=== PATIENT | male | born 1975 | race Caucasian/White ===

== ENCOUNTER 2021-12-04 08:27 | Emergency (ER) | payer MEDICAID, SELFPAY ==
[2021-12-04 08:39] VITALS: BP 126/106; PULSE 75; RESP 24; TEMP 36.5; O2SAT 100; BMI 27.0
--- NOTE | 2021-12-04 08:40 | ED_ITS ---
Documented by User: KARLY Urbina 12/04/21 13:06 HPI - Abdominal Pain General: Chief Complaint: Abdominal Pain Stated Complaint: ABD pain Time Seen by Provider: 12/04/21 08:28 Source: patient Mode of arrival: wheelchair Limitations: no limitations History of Present Illness: Patient is a nice 46-year-old male who presents to ED today with a complaint of abdominal pain, nausea, and vomiting beginning today. Patient states he has vomited approximately 6-7 times since onset. Emesis is nonbloody. Patient reports a chronic abdominal hernia that keeps popping out . Patient has an extensive previous abdominal history including history of Mueller's esophagus, 2 Musa fundoplications, esophagectomy with gastric pull-through, two hiatal hernia repairs, and another procedure that required resection of his small bowel as it had herniated and wrapped around his heart. He states he is from [place] and most of these surgeries were performed there. Patient states his abdominal hernia has always been reducible but is popping out more frequently now. He wears an abdominal binder. He is passing gas/stool. MD elicited complaint: abdominal pain Onset (ago): hour(s) Pain Consistency: constant Location: Diffuse Severity: severe Quality: cramping and sharp Relieving factors: nothing Associated Symptoms: Reports nausea and vomiting; Denies change in bowel habits, change in stool character, chills, dysuria, fever(s), hematochezia, hematemesis and melena Review of Systems Const: Denies: fever(s), chills, body aches, fatigue or malaise Card: Denies: chest pain Resp: Denies: dyspnea GI: Reports: abdominal pain, nausea and vomiting; Denies: hematemesis, change in bowel habits, pain on defecation, change in stool character, hematochezia or melena : Denies: flank pain or dysuria Musc: Denies: neck pain, back pain, extremity pain or joint pain Skin/Breast: Denies: rash Neuro: Denies: headache(s) or dizziness PFSH ED PFSH: Medical History Hiatal hernia Surgical History History of esophagectomy History of esophagectomy Social History Smoking and tobacco status: former smoker Physical Exam Const: COMMON NORMALS: average body habitus, patient oriented x3, no limitations, healthy appearing, alert and well nourished GENERAL APPEARANCE: cooperative and in distress (appears uncomfortable ) HENMT: COMMON NORMALS: normocephalic and atraumatic HEAD & SCALP: normal to inspection, normocephalic and atraumatic Chest: COMMONS NORMALS: normal inspection of the chest and normal palpation of entire chest wall Resp: COMMON NORMALS: normal respiratory effort and clear to auscultation bilaterally AUSCULTATION: clear to auscultation bilaterally Cardio: COMMON NORMALS: regular rate and regular rhythm RATE: regular rate RHYTHM: regular rhythm GI: COMMON NORMALS: Soft to palpation and No hepatosplenomegaly present INSPECTION: Yes other (obvious hernia present) AUSCULTATION: Yes normoactive bowel sounds PALPATION: Yes Soft to palpation, Yes No hepatosplenomegaly present and Yes Palpable mass present (L mid/lower abdomen) GI image (male): 1. large ventral/spigelian hernia present; this was easily reducible : COMMON NORMALS: Yes no CVA tenderness BLADDER/KIDNEY EXAM: Yes no CVA tenderness Back/Pelvis: COMMON NORMALS: no CVA tenderness Extremity: COMMON NORMALS: normal to inspection GENERAL: Yes normal exam except as noted Neuro: KEI COMA SCALE: document GCS findings Kei coma scale eye opening: Spontaneous Kei coma scale verbal response: Orientated [place] coma scale motor response: Obey commands [place] coma scale total score: 15 COMMON NORMALS: patient oriented x3, moves all extremities, no focal motor deficits, no sensory deficits noted and gait normal SENSORIUM/ORIENTATION: Yes alert Skin: COMMON NORMALS: no rashes or lesions noted GENERAL SKIN EXAM: no rashes or lesions noted Course Vital Signs: Vital signs: Vital Signs Temperature 97.9 F 12/04/21 13:17 Pulse Rate 79 12/04/21 13:17 Respiratory Rate 16 12/04/21 13:17 Blood Pressure 142/86 12/04/21 13:17 Pulse Oximetry 99 12/04/21 13:17 MDM - Abdominal Pain Medical Decision Making On re-examination patient is in no acute distress. He has not had any episodes of vomiting while here. He is passing gas and stool. His vital signs are normal. Patient has a normal white count and a normal lactate. As previously documented his large left ventral hernia was easily reproducible. Patient states he has had this hernia for many years and states it is normally reducible at home. Patient CT scan does show the large left ventral hernia with omental fat. There is no evidence for obstruction. Addendum was placed on the CT report regarding the intrathoracic findings. I spoke to Dr. Antonio who also consulted with Dr. Beckham who feels the findings on CT imaging is consistent with his history of esophagectomy with gastric pull-up. At this time we will have CM set patient up with general surgery for further evaluation/treatment if indicated. Strict return to ED precautions given. Lab Data I reviewed the patient's lab results. : 12/04/21 09:39 12/04/21 09:39 Labs/Radiology: Radiology Impressions Abdomen/Pelvis CT 12/04/21 08:40 IMPRESSION: 1. Large widemouth ventral abdominal wall hernia eccentric to the LEFT with herniated omental fat. No herniated bowel. No evidence of bowel obstruction. Hernia mouth measures approximately 5.7 CM. 2. Additional small fat-containing RIGHT parasagittal umbilical hernia 3. 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 Air-fluid level within the intrathoracic stomach. No evidence of obstruction. 4. No evidence of high-grade small or large bowel obstruction. 5. Bilateral pars defects L5-S1. No anterolisthesis. Laboratory Results WBC 6.1 10^3/uL (4.0-10.0) 12/04/21 09:39 Corrected WBC Cancelled 12/04/21 09:05 RBC 5.11 10^6/uL (4.1-5.3) 12/04/21 09:39 Hgb 12.9 g/dL (11.7-16.6) 12/04/21 09:39 Hct 41.5 % (42.0-52.0) L 12/04/21 09:39 MCV 81.2 fl (80-94) 12/04/21 09:39 MCH 25.2 pg (28.0-34.0) L 12/04/21 09:39 MCHC 31.1 g/dL (30.0-36.0) 12/04/21 09:39 RDW 14.3 % (12.1-15.1) 12/04/21 09:39 Plt Count 452 10^3/cmm (130-400) H 12/04/21 09:39 MPV 10.0 fL (7.4-10.4) 12/04/21 09:39 Gran % Cancelled 12/04/21 09:05 Neut % (Auto) 70.9 % 12/04/21 09:39 Lymph % (Auto) 16.7 % 12/04/21 09:39 [place] % (Auto) 10.0 % 12/04/21 09:39 Eos % (Auto) 1.1 % 12/04/21 09:39 Baso % (Auto) 0.8 % 12/04/21 09:39 Neut # (Auto) 4.33 10^3/uL (1.8-7.7) 12/04/21 09:39 Lymph # (Auto) 1.0 10^3/uL (0.8-4.8) 12/04/21 09:39 [place] # (Auto) 0.6 10^3/uL (0.2-0.9) 12/04/21 09:39 Eos # (Auto) 0.1 10^3/uL (0.0-0.8) 12/04/21 09:39 Baso # (Auto) 0.1 10^3/uL (0.0-0.1) 12/04/21 09:39 Absolute Gran (auto) Cancelled 12/04/21 09:05 Nucleated RBC % (auto) 0 % 12/04/21 09:39 Nucleated RBCs # 0.0 /100WBC 12/04/21 09:39 Sodium 138 mmol/L (136-145) 12/04/21 09:39 Potassium 4.1 mmol/L (3.5-5.1) 12/04/21 09:39 Chloride 104 mmol/L (98-107) 12/04/21 09:39 Carbon Dioxide 18 mmol/L (22-29) L 12/04/21 09:39 Anion Gap 20.1 (5-19) H 12/04/21 09:39 BUN 9 mg/dL (6-20) 12/04/21 09:39 Creatinine 0.9 mg/dL (0.7-1.2) 12/04/21 09:39 GFR Calculation 90.8 mL/min (90-130) 12/04/21 09:39 Glucose 104 mg/dL (65-115) 12/04/21 09:39 Calculated Osmolality 285 mOsm/kg (285-295) 12/04/21 09:39 Lactic Acid 2.0 mmol/L (0.5-2.2) 12/04/21 09:39 Calcium 9.5 mg/dL (8.5-10.5) 12/04/21 09:39 Total Bilirubin 0.5 mg/dL (0.15-1.2) 12/04/21 09:39 AST 18 U/L (0-40) 12/04/21 09:39 ALT 17 U/L (0-41) 12/04/21 09:39 Alkaline Phosphatase 101 IU/L (40-130) 12/04/21 09:39 Total Protein 7.6 g/dL (6.6-8.7) 12/04/21 09:39 Albumin 4.5 g/dL (3.5-5.2) 12/04/21 09:39 Globulin 3.1 g/dL (1.3-4.6) 12/04/21 09:39 Lipase 25 U/L (13-60) 12/04/21 09:39 Urine Color Yellow (Yellow) 12/04/21 11:56 Urine Appearance Clear (CLEAR) 12/04/21 11:56 Urine pH 8 (5-7) H 12/04/21 11:56 Ur Specific [place] 1.020 (1.005-1.030) 12/04/21 11:56 Urine Protein Neg (Negative) 12/04/21 11:56 Urine Glucose (UA) Norm (Normal) 12/04/21 11:56 Urine Ketones 1+ (Negative) H 12/04/21 11:56 Urine Blood Neg (Negative) 12/04/21 11:56 Urine Nitrate Negative (Negative) 12/04/21 11:56 Urine Bilirubin Neg (Negative) 12/04/21 11:56 Prot Sulfosalicylic Acd Negative (Negative) 12/04/21 11:56 Urine Urobilinogen Norm mg/dL (Negative) 12/04/21 11:56 Ur Leukocyte Esterase Negative (Negative) 12/04/21 11:[address] Abd/Pel: Radiologist's impression: [address] [address] [address] Scan Report Signed with Addrad Patient: Christiano Gonzalez Unit #: [id number] : 1975 Age/Sex: 46 / M ADM Date: 12/04/21 Loc: ER Room/Bed: Attending Dr: Ordering Provider/Ordering MD: Osiris Luna Date of Service: 12/04/21 Procedure(s): CT abdomen pelvis w con* [id number] Accession Number(s): [id number] Report Number: [id number] ADDENDUM WS: [id number] Additional clinical information provided: Patient with history of esophagectomy with gastric pull- through. Intrathoracic stomach consistent with gastric pull-through. The retrosternal hernia was likely pre-existing and utilized for the intrathoracic gastric pull-through anastomosis. Addendum Dictated By: Igor Antonio MD Addendum Signed By: Igor Antonio MD Signed Date/Time: 2 4498 Addendum Cosigned By: Discharge Plan Discharge Patient Disposition: Home Clinical Impression: Ventral hernia Condition: Stable Prescriptions: No Action No Known Home Medications 0RF Discharge Orders: Discharge ED (Routine); Ordered 12/04/21 Ordered By: Osiris Luna Activity Restrictions/Additional Instructions: As we discussed case management should contact you shortly to set you up with general surgery for further evaluation and possible treatment of your abdominal hernia. As we discussed you need to limit lifting, avoid straining, or anything that would increase pressure to your abdomen. You need to be wearing your abdominal binder at all times. You need to return to the emergency department immediately if hernia is not able to be reduced, becomes severely painful, repetitive episodes of vomiting, inability to pass gas or stool, fevers, or any other concerns you may have. Coding Level of Care Code ED Grocery Clerk Selling for Chg Fwd Exam Comprehensive Documented by User: Yosef Riley MD 12/14/21 21:04 HPI - Abdominal Pain General: Chief Complaint: Abdominal Pain Stated Complaint: ABD pain Time Seen by Provider: 12/04/21 08:28 PFS ED PFSH: Medical History Hiatal hernia Surgical History History of esophagectomy History of esophagectomy Social History Smoking and tobacco status: former smoker Physical Exam GI: GI image (male): 1. large ventral/spigelian hernia present; this was easily reducible Neuro: KEI COMA SCALE: document GCS findings Kei coma scale total score: 15 Course Vital Signs: Vital signs: Vital Signs Temperature 97.9 F 12/04/21 13:17 Pulse Rate 79 12/04/21 13:17 Respiratory Rate 16 12/04/21 13:17 Blood Pressure 142/86 12/04/21 13:17 Pulse Oximetry 99 12/04/21 13:17 MDM - Abdominal Pain Medical Decision Making On re-examination patient is in no acute distress. He has not had any episodes of vomiting while here. He is passing gas and stool. His vital signs are normal. Patient has a normal white count and a normal lactate. As previously documented his large left ventral hernia was easily reproducible. Patient states he has had this hernia for many years and states it is normally reducible at home. Patient CT scan does show the large left ventral hernia with omental fat. There is no evidence for obstruction. Addendum was placed on the CT report regarding the intrathoracic findings. I spoke to Dr. Antonio who also consulted with Dr. Beckham who feels the findings on CT imaging is consistent with his history of esophagectomy with gastric pull-up. At this time we will have CM set patient up with general surgery for further evaluation/treatment if indicated. Strict return to ED precautions given. I have reviewed this documentation by KARLY Urbina. I discussed the patient with her at time of care. Yosef Riley MD Emergency Medicine Lab Data : 12/04/21 09:39 12/04/21 09:39 Labs/Radiology: Radiology Impressions Abdomen/Pelvis CT 12/04/21 08:40 IMPRESSION: 1. Large widem[place] ventral abdominal wall hernia eccentric to the LEFT with herniated omental fat. No herniated bowel. No evidence of bowel obstruction. Hernia mouth measures approximately 5.7 CM. 2. Additional small fat-containing RIGHT parasagittal umbilical hernia 3. 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 Air-fluid level w ithin the intrathoracic stomach. No evidence of obstruction. 4. No evidence of high-grade small or large bowel obstruction. 5. Bilateral pars defects L5-S1. No anterolisthesis. Laboratory Results WBC 6.1 10^3/uL (4.0-10.0) 12/04/21 09:39 Corrected WBC Cancelled 12/04/21 09:05 RBC 5.11 10^6/uL (4.1-5.3) 12/04/21 09:39 Hgb 12.9 g/dL (11.7-16.6) 12/04/21 09:39 Hct 41.5 % (42.0-52.0) L 12/04/21 09:39 MCV 81.2 fl (80-94) 12/04/21 09:39 MCH 25.2 pg (28.0-34.0) L 12/04/21 09:39 MCHC 31.1 g/dL (30.0-36.0) 12/04/21 09:39 RDW 14.3 % (12.1-15.1) 12/04/21 09:39 Plt Count 452 10^3/cmm (130-400) H 12/04/21 09:39 MPV 10.0 fL (7.4-10.4) 12/04/21 09:39 Gran % Cancelled 12/04/21 09:05 Neut % (Auto) 70.9 % 12/04/21 09:39 Lymph % (Auto) 16.7 % 12/04/21 09:39 [place] % (Auto) 10.0 % 12/04/21 09:39 Eos % (Auto) 1.1 % 12/04/21 09:39 Baso % (Auto) 0.8 % 12/04/21 09:39 Neut # (Auto) 4.33 10^3/uL (1.8-7.7) 12/04/21 09:39 Lymph # (Auto) 1.0 10^3/uL (0.8-4.8) 12/04/21 09:39 [place] # (Auto) 0.6 10^3/uL (0.2-0.9) 12/04/21 09:39 Eos # (Auto) 0.1 10^3/uL (0.0-0.8) 12/04/21 09:39 Baso # (Auto) 0.1 10^3/uL (0.0-0.1) 12/04/21 09:39 Absolute Gran (auto) Cancelled 12/04/21 09:05 Nucleated RBC % (auto) 0 % 12/04/21 09:39 Nucleated RBCs # 0.0 /100WBC 12/04/21 09:39 Sodium 138 mmol/L (136-145) 12/04/21 09:39 Potassium 4.1 mmol/L (3.5-5.1) 12/04/21 09:39 Chloride 104 mmol/L (98-107) 12/04/21 09:39 Carbon Dioxide 18 mmol/L (22-29) L 12/04/21 09:39 Anion Gap 20.1 (5-19) H 12/04/21 09:39 BUN 9 mg/dL (6-20) 12/04/21 09:39 Creatinine 0.9 mg/dL (0.7-1.2) 12/04/21 09:39 GFR Calculation 90.8 mL/min (90-130) 12/04/21 09:39 Glucose 104 mg/dL (65-115) 12/04/21 09:39 Calculated Osmolality 285 mOsm/kg (285-295) 12/04/21 09:39 Lactic Acid 2.0 mmol/L (0.5-2.2) 12/04/21 09:39 Calcium 9.5 mg/dL (8.5-10.5) 12/04/21 09:39 Total Bilirubin 0.5 mg/dL (0.15-1.2) 12/04/21 09:39 AST 18 U/L (0-40) 12/04/21 09:39 ALT 17 U/L (0-41) 12/04/21 09:39 Alkaline Phosphatase 101 IU/L (40-130) 12/04/21 09:39 Total Protein 7.6 g/dL (6.6-8.7) 12/04/21 09:39 Albumin 4.5 g/dL (3.5-5.2) 12/04/21 09:39 Globulin 3.1 g/dL (1.3-4.6) 12/04/21 09:39 Lipase 25 U/L (13-60) 12/04/21 09:39 Urine Color Yellow (Yellow) 12/04/21 11:56 Urine Appearance Clear (CLEAR) 12/04/21 11:56 Urine pH 8 (5-7) H 12/04/21 11:56 Ur Specific [place] 1.020 (1.005-1.030) 12/04/21 11:56 Urine Protein Neg (Negative) 12/04/21 11:56 Urine Glucose (UA) Norm (Normal) 12/04/21 11:56 Urine Ketones 1+ (Negative) H 12/04/21 11:56 Urine Blood Neg (Negative) 12/04/21 11:56 Urine Nitrate Negative (Negative) 12/04/21 11:56 Urine Bilirubin Neg (Negative) 12/04/21 11:56 Prot Sulfosalicylic Acd Negative (Negative) 12/04/21 11:56 Urine Urobilinogen Norm mg/dL (Negative) 12/04/21 11:56 Ur Leukocyte Esterase Negative (Negative) 12/04/21 11:56 Discharge Plan Discharge Patient Disposition: Home Clinical Impression: Ventral hernia Condition: Stable Prescriptions: No Action No Known Home Medications 0RF Discharge Orders: Discharge ED (Routine); Ordered 12/04/21 Ordered By: Osiris Luna Activity Restrictions/Additional Instructions: As we discussed case management should contact you shortly to set you up with general surgery for further evaluation and possible treatment of your abdominal hernia. As we discussed you need to limit lifting, avoid straining, or anything that would increase pressure to your abdomen. You need to be wearing your abdominal binder at all times. You need to return to the emergency department immediately if hernia is not able to be reduced, becomes severely painful, rep etitive episodes of vomiting, inability to pass gas or stool, fevers, or any other concerns you may have. Coding Level of Care Code ED Grocery Clerk Selling for Chg Fwd Exam Comprehensive
--- NOTE | 2021-12-04 08:40 | CT_ITS ---
WS: [id number] CT ABDOMEN PELVIS TECHNIQUE: Contrast-enhanced CT of the abdomen and pelvis with coronal and sagittal reformatted image s. CLINICAL INFORMATION: abdominal pain, N/V; large ventral hernia-reduced COMPARISON: None. DLP: 1744.[address] scans at [facility] use at least one of these dose optimization techniques: automated e xposure control; mA and/or kV adjustment per patient size (includes targeted exams where dose is matc hed to clinical indication); or iterative reconstruction. FINDINGS: Lung bases are well aerated. Noncontrast liver is normal. Normal noncontrast spleen. Noncontrast panc reas is normal. Large LEFT ventral abdominal wall hernia with wide mouth opening measuring approximately 5.8 cm. Maurisio iation of omental fat eccentric to the LEFT. Bowel abuts this area but no herniated bowel. No evidenc e of bowel obstruction or strangulation. Additional Morgagni type upper abdominal hernia consisting of intrathoracic stomach in the anterior m ediastinum anterior to the heart. Mild mass effect on the RIGHT ventricle. Air-fluid level in the int rathoracic stomach. No evidence of high-grade obstruction. Additional fat-containing RIGHT parasagitt al umbilical hernia. Adrenal glands are normal. No hydronephrosis in either kidney. Small LEFT renal cyst. Noncontrast harley creas is normal. Normal sigmoid colon. A few diverticuli. No evidence of high-grade small or large [place] wel obstruction. Normal caliber abdominal aorta. Normal gallbladder. No periaortic lymphadenopathy. N o inguinal lymphadenopathy. Bilateral pars defects L5-S1. No anterolisthesis. CT/CT abdomen pelvis w con* [id number] IMPRESSION: 1. Large [place] ventral abdominal wall hernia eccentric to the LEFT with he rniated omental fat. No herniated bowel. No evidence of bowel obstruction. Maurisio ia mouth measures approximately 5.7 CM. 2. Additional small fat-containing RIGHT parasagittal umbilical hernia 3. Morgagni type hernia with Intrathoracic stomach with herniation of the stom ach into the anterior mediastinum anterior to the heart. Air-fluid level within the intrathoracic stomach. No evidence of obstruction. 4. No evidence of high-grade small or large bowel obstruction. 5. Bilateral pars defects L5-S1. No anterolisthesis.
[2021-12-04 09:47] LABS: Basophils # 0.1 10^3/uL (0.0-0.1); Basophils % 0.8 %; Eosinophils # 0.1 10^3/uL (0.0-0.8); Eosinophils % 1.1 %; Hematocrit 41.5 % (42.0-52.0); Hemoglobin 12.9 g/dL (11.7-16.6); Lymphocytes % 16.7 %; Mean Corpuscular HGB Conc 31.1 g/dL (30.0-36.0); Mean Corpuscular Hemoglobin 25.2 pg (28.0-34.0); Mean Corpuscular Volume 81.2 fl (80-94); Monocytes # 0.6 10^3/uL (0.2-0.9); Neutrophils # 4.33 10^3/uL (1.8-7.7); Neutrophils % 70.9 %; Nucleated Red Blood Cells % 0 %; Platelet Count 452 10^3/cmm (130-400); Red Blood Count 5.11 10^6/uL (4.1-5.3); Red Cell Distribution Width 14.3 % (12.1-15.1); White Blood Count 6.1 10^3/uL (4.0-10.0)
[2021-12-04 10:05] LABS: Alanine Aminotransferase 17 U/L (0-41); Albumin Level 4.5 g/dL (3.5-5.2); Alkaline Phosphatase 101 IU/L (40-130); Anion Gap 20.1 (5-19); Aspartate Amino Transferase 18 U/L (0-40); Blood Urea Nitrogen 9 mg/dL (6-20); Calcium 9.5 mg/dL (8.5-10.5); Carbon Dioxide 18 mmol/L (22-29); Chloride 104 mmol/L (98-107); Globulin 3.1 g/dL (1.3-4.6); Glomerular Filtration Rate 90.8 mL/min (90-130); Glucose 104 mg/dL (65-115); Lipase 25 U/L (13-60); Osmolality Calculated 285 mOsm/kg (285-295); Potassium 4.1 mmol/L (3.5-5.1); Sodium 138 mmol/L (136-145); Total Bilirubin 0.5 mg/dL (0.15-1.2); Total Protein 7.6 g/dL (6.6-8.7)
[2021-12-04 11:05] VITALS: RESP 16; O2SAT 97
[2021-12-04] MEDS: morphine 4 mg/mL SDV 1 mL IVP (11:05)
[2021-12-04] MEDS: ondansetron 2 mg/ML SDV 2 mL 4 MG IVP (11:06)
[2021-12-04] MEDS: iohexol 300 mg/mL 100 mL Btl IV (11:07)
[2021-12-04] MEDS: lactated ringers 1,000 ML 999 ML IV (11:07)
[2021-12-04 12:24] LABS: Add Urine Microscopic? NO; Charge for UA Resulting for Rev
[2021-12-04 12:31] LABS: Bilirubin Urine Neg (Negative); Blood Urine Neg (Negative); Glucose Urine UA Norm (Normal); Ketones Urine 1+ (Negative); Leukocyte Esterase Urine Negative (Negative); Nitrate Urine Negative (Negative); Protein Urine Neg (Negative); Sulfosalicylic Acid Urine Negative (Negative); Urine Appearance Clear (CLEAR); Urine Color Yellow (Yellow); Urobilinogen Urine Norm (Negative); pH Urine 8 (5-7)
[2021-12-04 13:15] VITALS: BP 142/86; PULSE 79; RESP 16; TEMP 36.6; O2SAT 99
[2021-12-04 13:17] VITALS: BP 142/86; PULSE 79; RESP 16; TEMP 36.6; O2SAT 99
--- NOTE | 2021-12-05 13:42 | DCPLANNER ---
Addendum entered by Candice Heart 12/25/21 14:14: Patient had a follow up appointment scheduled for 12.12.21 with general surgery - patient did attend appointment. Addendum entered by Candice Heart 12/06/21 13:37: Patient has a follow up appointment scheduled for December at 1:[address] Lopez at General Surgery. Clinic will call patient with appointment information. Original Note: banking manager had message to schedule a follow up appointment for patient with general surgery. banking manager emailed patients information to Brenda Brown and Angelica at [facility] General Surgery / ENT clinic. Patients information will be printed and reviewed. Clinic will call patient with appointment information.
== END 2021-12-04 13:18 | disposition home or self-care (01) ==
PROVIDERS: Emergency Provider Physician Assistant
DX: K43.9 Ventral hernia without obstruction or gangrene (principal)
CPT/HCPCS: 36415; 74177; 80053; 81003; 83605; 83690; 85025; 96361; 96374; 96375; 99283; J2270; J2405; Q9967

== ENCOUNTER 2022-05-05 12:53 | Emergency (ER) | payer MEDICAID, SELFPAY ==
[2022-05-05] VITALS (9 sets, daily range): BP systolic 93–127; BP diastolic 63–86; PULSE 63–73; RESP 16; TEMP 36.6; O2SAT 94–100; BMI 27.1
--- NOTE | 2022-05-05 13:20 | ECG_ITS ---
[facility] Test Date: 2022-05-05 Pat Name: Christiano Gonzalez Department: Room: Gender: Male Voice Pathologist: : 1975 Requested By: Robb Snider Order Number: [id number] Leobardo MD: Fermin Meadows M.D. Measurements Intervals [place] Rate: 66 P: 47 MS: 125 QRS: 41 QRSD: 80 T: 15 QT: 368 QTc: 387 Interpretive Statements SINUS RHYTHM WITH SINUS ARRHYTHMIA INTERPRETATION BASED ON A DEFAULT AGE OF 40 YEARS No previous ECG available for comparison Electronically Signed On 05-06-2022 7:08:25 CDT by Fermin Meadows M.D. [id number]
--- NOTE | 2022-05-05 13:26 | W.ED.SYNCOPE ---
Documented by User: Robb Friend DO 05/12/22 21:58 HPI - Syncope General: Chief Complaint: Syncope Stated Complaint: dizzy, fall -head pain Time Seen by Provider: 05/05/22 13:20 Source: patient Mode of arrival: ambulatory Limitations: no limitations History of Present Illness: 46-year-old male presents emergency room with couple episodes of dizziness lightheadedness with change in position yesterday and today. Is also complaining of simultaneous left flank pain that is quite severe he denies any medic easy melena hematemesis cough cramps no dysuria urgency frequency nor any fever sweats chills. Has not been short of breath has not had any cough. No history of renal stones. No hematuria. MD complaint: almost passed out Onset (ago): day(s) (2) Prodromal symptoms: lightheaded Witnessed: Yes - by Bystander Context: standing up Injuries sustained associated with event: none Associated symptoms: Reports short of breath and weakness; Deny abdominal pain, chest pain, fever(s), headache(s), lightheadedness, nausea or vertigo Treatments prior to arrival: none Review of Systems Const: Denies: fever(s), chills, fatigue or malaise ENMT: Denies: throat pain, ear or mastoid pain, nasal discharge or nasal congestion Card: Denies: chest pain, palpitations, irregular heart rhythm or lightheadedness Resp: Denies: dyspnea, productive cough or non-productive cough GI: Denies: abdominal pain or nausea : Denies: flank pain, difficulty urinating, dysuria, urinary frequency or urinary urgency Skin/Breast: Denies: rash or pruritus Neuro: Denies: headache(s) or vertigo PFSH ED PFSH: Medical History Hiatal hernia Surgical History History of esophagectomy History of esophagectomy Social History Smoking and tobacco status: former smoker Physical Exam Const: GENERAL APPEARANCE: cooperative and comfortable ORIENTATION/CONSCIOUSNESS: Yes awake, Yes oriented to person, Yes oriented to place and Yes oriented to time HENMT: COMMON NORMALS: normocephalic, atraumatic and hearing grossly normal bilaterally HEAD & SCALP: normocephalic and atraumatic Eye: COMMON NORMALS: Equal, round and reactive pupils present, EOMs intact bilaterally, conjunctivae normal and no scleral icterus CONJUNCTIVA: Yes conjunctivae normal PUPIL: Yes Equal, round and reactive pupils present Resp: COMMON NORMALS: normal respiratory effort, No retractions, No use of accessory muscles and clear to auscultation bilaterally AUSCULTATION: clear to auscultation bilaterally Cardio: COMMON NORMALS: regular rate, regular rhythm and No murmurs present (Cardio) RATE: regular rate RHYTHM: regular rhythm GI: COMMON NORMALS: Soft to palpation and No hepatosplenomegaly present AUSCULTATION: Yes normoactive bowel sounds PALPATION: Yes Soft to palpation, No Tenderness to palpation present (GI), No Guarding due to palpation present (GI) and Yes No hepatosplenomegaly present Extremity: COMMON NORMALS: normal to inspection, capillary refill normal, no clubbing, cyanosis or edema, no calf tenderness and no pedal edema Neuro: SENSORIUM/ORIENTATION: Yes oriented to person, Yes oriented to place and Yes oriented to time Skin: COMMON NORMALS: no rashes or lesions noted GENERAL SKIN EXAM: no rashes or lesions noted Course Vital Signs: Vital signs: Vital Signs Temperature 97.9 F 05/05/22 13:04 Pulse Rate 63 05/05/22 19:08 Respiratory Rate 16 05/05/22 19:08 Blood Pressure 111/81 05/05/22 19:08 Pulse Oximetry 100 05/05/22 19:08 Oxygen Delivery Me thod 05/05/22 19:08 MDM - Syncope Medical Decision Making Care turned over to Dr. Valladares at change shift see his note final diagnosis disposition Patient presents with a syncopal event likely vasovagal he is well-appearing here his heart enzymes are normal he stable for discharge he is to follow-up with PCP and return if worsening he understands agrees to plan. Lab Data : 05/05/22 15:00 05/05/22 15:00 Laboratory Results WBC 6.4 10^3/uL (4.0-10.0) 05/05/22 15:00 RBC 5.00 10^6/uL (4.1-5.3) 05/05/22 15:00 Hgb 11.5 g/dL (11.7-16.6) L 05/05/22 15:00 Hct 37.9 % (42.0-52.0) L 05/05/22 15:00 MCV 75.8 fl (80-94) L 05/05/22 15:00 MCH 23.0 pg (28.0-34.0) L 05/05/22 15:00 MCHC 30.3 g/dL (30.0-36.0) 05/05/22 15:00 RDW 15.4 % (12.1-15.1) H 05/05/22 15:00 Plt Count 335 10^3/cmm (130-400) 05/05/22 15:00 MPV 9.8 fL (7.4-10.4) 05/05/22 15:00 Neut % (Auto) 60.2 % 05/05/22 15:00 Lymph % (Auto) 26.3 % 05/05/22 15:00 [place] % (Auto) 10.1 % 05/05/22 15:00 Eos % (Auto) 2.5 % 05/05/22 15:00 Baso % (Auto) 0.6 % 05/05/22 15:00 Neut # (Auto) 3.87 10^3/uL (1.8-7.7) 05/05/22 15:00 Lymph # (Auto) 1.7 10^3/uL (0.8-4.8) 05/05/22 15:00 [place] # (Auto) 0.7 10^3/uL (0.2-0.9) 05/05/22 15:00 Eos # (Auto) 0.2 10^3/uL (0.0-0.8) 05/05/22 15:00 Baso # (Auto) 0.0 10^3/uL (0.0-0.1) 05/05/22 15:00 Nucleated RBC % (auto) 0 % 05/05/22 15:00 Nucleated RBCs # 0.0 /100WBC 05/05/22 15:00 Sodium 138 mmol/L (136-145) 05/05/22 15:00 Potassium 4.0 mmol/L (3.5-5.1) 05/05/22 15:00 Chloride 106 mmol/L (98-107) 05/05/22 15:00 Carbon Dioxide 22 mmol/L (22-29) 05/05/22 15:00 Anion Gap 14.0 (5-19) 05/05/22 15:00 BUN 7 mg/dL (6-20) 05/05/22 15:00 Creatinine 0.6 mg/dL (0.7-1.2) L 05/05/22 15:00 GFR Calculation 145.0 mL/min (90-130) H 05/05/22 15:00 Glucose 89 mg/dL (65-115) 05/05/22 15:00 Calculated Osmolality 283 mOsm/kg (285-295) L 05/05/22 15:00 Lactic Acid 1.2 mmol/L (0.5-2.2) 05/05/22 15:00 Calcium 8.4 mg/dL (8.5-10.5) L 05/05/22 15:00 Magnesium 2.0 mg/dL (1.7-2.3) 05/05/22 15:00 Total Bilirubin 0.3 mg/dL (0.15-1.2) 05/05/22 15:00 AST 12 U/L (0-40) 05/05/22 15:00 ALT 11 U/L (0-41) 05/05/22 15:00 Alkaline Phosphatase 94 IU/L (40-130) 05/05/22 15:00 Troponin T Baseline 6 ng/L (0-15) 05/05/22 15:00 Troponin T 120 Minute 7.40 ng/L (0-15) 05/05/22 17:23 Delta Troponin T 1.40 ABS# (0-10) 05/05/22 17:23 Total Protein 6.2 g/dL (6.6-8.7) L 05/05/22 15:00 Albumin 3.8 g/dL (3.5-5.2) 05/05/22 15:00 Globulin 2.4 g/dL (1.3-4.6) 05/05/22 15:00 Lipase 20 U/L (13-60) 05/05/22 15:00 Urine Color Yellow (Yellow) 05/05/22 15:24 Urine Appearance Clear (CLEAR) 05/05/22 15:24 Urine pH 8 (5-7) H 05/05/22 15:24 Ur Specific [place] 1.005 (1.005-1.030) 05/05/22 15:24 Urine Protein Neg (Negative) 05/05/22 15:24 Urine Glucose (UA) Norm (Normal) 05/05/22 15:24 Urine Ketones Negative (Negative) 05/05/22 15:24 Urine Blood Neg (Negative) 05/05/22 15:24 Urine Nitrate Negative (Negative) 05/05/22 15:24 Urine Bilirubin Neg (Negative) 05/05/22 15:24 Prot Sulfosalicylic Acd Negative (Negative) 05/05/22 15:24 Urine Urobilinogen Norm mg/dL (Negative) 05/05/22 15:24 Ur Leukocyte Esterase Negative (Negative) 05/05/22 15:24 Serum Ketones Negative (Negative) 05/05/22 15:00 Discharge Plan Discharge Patient Disposition: Home Clinical Impression: Vasovagal syncope Condition: Stable Prescriptions: No Action No Known Home Medications Discharge Orders: Discharge ED (Routine); Ordered 05/05/22 Ordered By: Nya Valladares Discharge Diet: Advance as tolerated Discharge Activity: Resume usual activity Patient Instructions: Syncope (ED) Coding Level of Care Code ED Dredge Lever Operator for Chg Fwd Exam Comprehensive Documented by User: Nya Valladares MD 05/05/22 19:12 HPI - Syncope General: Chief Complaint: Syncope Stated Complaint: dizzy, fall -head pain Time Seen by Provider: 05/05/22 13:20 PFSH ED PFSH: Medical History Hiatal hernia Surgical History History of esophagectomy History of esophagectomy Social History Smoking and tobacco status: former smoker Course Vital Signs: Vital signs: Vital Signs Temperature 97.9 F 05/05/22 13:04 Pulse Rate 63 05/05/22 19:08 Respiratory Rate 16 05/05/22 19:08 Blood Pressure 111/81 05/05/22 19:08 Pulse Oximetry 100 05/05/22 19:08 Oxygen Delivery Me thod 05/05/22 19:08 MDM - Syncope Medical Decision Making Patient presents with a syncopal event likely vasovagal he is well-appearing here his heart enzymes are normal he stable for discharge he is to follow-up with PCP and return if worsening he understands agrees to plan. Lab Data : 05/05/22 15:00 05/05/22 15:00 Laboratory Results WBC 6.4 10^3/uL (4.0-10.0) 05/05/22 15:00 RBC 5.00 10^6/uL (4.1-5.3) 05/05/22 15:00 Hgb 11.5 g/dL (11.7-16.6) L 05/05/22 15:00 Hct 37.9 % (42.0-52.0) L 05/05/22 15:00 MCV 75.8 fl (80-94) L 05/05/22 15:00 MCH 23.0 pg (28.0-34.0) L 05/05/22 15:00 MCHC 30.3 g/dL (30.0-36.0) 05/05/22 15:00 RDW 15.4 % (12.1-15.1) H 05/05/22 15:00 Plt Count 335 10^3/cmm (130-400) 05/05/22 15:00 MPV 9.8 fL (7.4-10.4) 05/05/22 15:00 Neut % (Auto) 60.2 % 05/05/22 15:00 Lymph % (Auto) 26.3 % 05/05/22 15:00 [place] % (Auto) 10.1 % 05/05/22 15:00 Eos % (Auto) 2.5 % 05/05/22 15:00 Baso % (Auto) 0.6 % 05/05/22 15:00 Neut # (Auto) 3.87 10^3/uL (1.8-7.7) 05/05/22 15:00 Lymph # (Auto) 1.7 10^3/uL (0.8-4.8) 05/05/22 15:00 [place] # (Auto) 0.7 10^3/uL (0.2-0.9) 05/05/22 15:00 Eos # (Auto) 0.2 10^3/uL (0.0-0.8) 05/05/22 15:00 Baso # (Auto) 0.0 10^3/uL (0.0-0.1) 05/05/22 15:00 Nucleated RBC % (auto) 0 % 05/05/22 15:00 Nucleated RBCs # 0.0 /100WBC 05/05/22 15:00 Sodium 138 mmol/L (136-145) 05/05/22 15:00 Potassium 4.0 mmol/L (3.5-5.1) 05/05/22 15:00 Chloride 106 mmol/L (98-107) 05/05/22 15:00 Carbon Dioxide 22 mmol/L (22-29) 05/05/22 15:00 Anion Gap 14.0 (5-19) 05/05/22 15:00 BUN 7 mg/dL (6-20) 05/05/22 15:00 Creatinine 0.6 mg/dL (0.7-1.2) L 05/05/22 15:00 GFR Calculation 145.0 mL/min (90-130) H 05/05/22 15:00 Glucose 89 mg/dL (65-115) 05/05/22 15:00 Calculated Osmolality 283 mOsm/kg (285-295) L 05/05/22 15:00 Lactic Acid 1.2 mmol/L (0.5-2.2) 05/05/22 15:00 Calcium 8.4 mg/dL (8.5-10.5) L 05/05/22 15:00 Magnesium 2.0 mg/dL (1.7-2.3) 05/05/22 15:00 Total Bilirubin 0.3 mg/dL (0.15-1.2) 05/05/22 15:00 AST 12 U/L (0-40) 05/05/22 15:00 ALT 11 U/L (0-41) 05/05/22 15:00 Alkaline Phosphatase 94 IU/L (40-130) 05/05/22 15:00 Troponin T Baseline 6 ng/L (0-15) 05/05/22 15:00 Troponin T 120 Minute 7.40 ng/L (0-15) 05/05/22 17:23 Delta Troponin T 1.40 ABS# (0-10) 05/05/22 17:23 Total Protein 6.2 g/dL (6.6-8.7) L 05/05/22 15:00 Albumin 3.8 g/dL (3.5-5.2) 05/05/22 15:00 Globulin 2.4 g/dL (1.3-4.6) 05/05/22 15:00 Lipase 20 U/L (13-60) 05/05/22 15:00 Urine Color Yellow (Yellow) 05/05/22 15:24 Urine Appearance Clear (CLEAR) 05/05/22 15:24 Urine pH 8 (5-7) H 05/05/22 15:24 Ur Specific [place] 1.005 (1.005-1.030) 05/05/22 15:24 Urine Protein Neg (Negative) 05/05/22 15:24 Urine Glucose (UA) Norm (Normal) 05/05/22 15:24 Urine Ketones Negative (Negative) 05/05/22 15:24 Urine Blood Neg (Negative) 05/05/22 15:24 Urine Nitrate Negative (Negative) 05/05/22 15:24 Urine Bilirubin Neg (Negative) 05/05/22 15:24 Prot Sulfosalicylic Acd Negative (Negative) 05/05/22 15:24 Urine Urobilinogen Norm mg/dL (Negative) 05/05/22 15:24 Ur Leukocyte Esterase Negative (Negative) 05/05/22 15:24 Serum Ketones Negative (Negative) 05/05/22 15:00 Discharge Plan Discharge Patient Disposition: Home Clinical Impression: Vasovagal syncope Condition: Stable Prescriptions: No Action No Known Home Medications Discharge Orders: Discharge ED (Routine); Ordered 05/05/22 Ordered By: Nya Valladares Discharge Diet: Advance as tolerated Discharge Activity: Resume usual activity Patient Instructions: Syncope (ED) Coding Level of Care Code ED Dredge Lever Operator for Semajg Fwd Exam Comprehensive
[2022-05-05 15:09] LABS: Basophils % 0.6 %; Eosinophils # 0.2 10^3/uL (0.0-0.8); Eosinophils % 2.5 %; Hematocrit 37.9 % (42.0-52.0); Hemoglobin 11.5 g/dL (11.7-16.6); Lymphocytes # 1.7 10^3/uL (0.8-4.8); Lymphocytes % 26.3 %; Mean Corpuscular HGB Conc 30.3 g/dL (30.0-36.0); Mean Corpuscular Volume 75.8 fl (80-94); Mean Platelet Volume 9.8 fL (7.4-10.4); Monocytes # 0.7 10^3/uL (0.2-0.9); Monocytes % 10.1 %; Neutrophils # 3.87 10^3/uL (1.8-7.7); Neutrophils % 60.2 %; Nucleated Red Blood Cells % 0 %; Platelet Count 335 10^3/cmm (130-400); Red Cell Distribution Width 15.4 % (12.1-15.1); White Blood Count 6.4 10^3/uL (4.0-10.0)
--- NOTE | 2022-05-05 15:20 | ECG_ITS ---
[facility] Test Date: 2022-05-05 Pat Name: Christiano Gonzalez Department: Room: Gender: Male Baker: : 1975 Requested By: Robb Snider Order Number: [id number] Leobardo MD: Yessica Connors M.D. Measurements Intervals Moon Rate: 57 P: 33 AR: 112 QRS: 23 QRSD: 90 T: 1 QT: 398 QTc: 390 Interpretive Statements SINUS BRADYCARDIA WITH SHORT AR INTERVAL MODERATE T-WAVE ABNORMALITY, CONSIDER INFERIOR ISCHEMIA [-0.1+ mV T WAVE IN II/aVF] Compared to ECG 05/05/2022 13:11:42 Short AR interval now present T-wave abnormality now present Possible ischemia now present Sinus rhythm no longer present Sinus arrhythmia no longer present Heavy baseline artifact Need to repeat the study Electronically Signed On 05-06-2022 21:22:27 CDT by Yessica Connors M.D. [id number]
[2022-05-05 15:50] LABS: Lactic Sepsis W/Reflex 1.2 mmol/L (0.5-2.2)
[2022-05-05 15:53] LABS: Troponin(5th) Baseline 6 ng/L (0-15)
[2022-05-05 15:54] LABS: Alanine Aminotransferase 11 U/L (0-41); Albumin Level 3.8 g/dL (3.5-5.2); Alkaline Phosphatase 94 IU/L (40-130); Aspartate Amino Transferase 12 U/L (0-40); Blood Urea Nitrogen 7 mg/dL (6-20); Calcium 8.4 mg/dL (8.5-10.5); Carbon Dioxide 22 mmol/L (22-29); Chloride 106 mmol/L (98-107); Globulin 2.4 g/dL (1.3-4.6); Glucose 89 mg/dL (65-115); Lipase 20 U/L (13-60); Osmolality Calculated 283 mOsm/kg (285-295); Sodium 138 mmol/L (136-145); Total Bilirubin 0.3 mg/dL (0.15-1.2); Total Protein 6.2 g/dL (6.6-8.7)
[2022-05-05] MEDS: sodium chloride 0.9% 1,000 ML 999 ML IV (15:54)
[2022-05-05 15:57] LABS: Add Urine Microscopic? NO; Charge for UA Resulting for Rev
[2022-05-05 15:57] LABS: Ketone (Acetest) Serum Negative (Negative)
[2022-05-05 15:59] LABS: Bilirubin Urine Neg (Negative); Blood Urine Neg (Negative); Glucose Urine UA Norm (Normal); Ketones Urine Negative (Negative); Leukocyte Esterase Urine Negative (Negative); Nitrate Urine Negative (Negative); Protein Urine Neg (Negative); Specific Gravity, Urine 1.005 (1.005-1.030); Sulfosalicylic Acid Urine Negative (Negative); Urine Appearance Clear (CLEAR); Urine Color Yellow (Yellow); Urobilinogen Urine Norm (Negative); pH Urine 8 (5-7)
[2022-05-05] MEDS: acetaminophen 500 mg Tablet 1000 MG PO (18:15)
--- NOTE | 2022-05-05 19:23 | PC.NURSE ---
Report from SARAH Hastings. Pt resting quietly in bed. Ready for DC. Spoke with Dr. Valladares, who says he is ready to go. IV Dc'd and pt assisted to lobby via wc.
== END 2022-05-05 19:28 | disposition home or self-care (01) ==
PROVIDERS: Family Medicine; Emergency Provider Emergency Medicine
DX: R55 Syncope and collapse (principal); Z87.891 Personal history of nicotine dependence
CPT/HCPCS: 36415; 80053; 81003; 82009; 83605; 83690; 83735; 84484; 85025; 93005; 96360; 99284; J7030

== ENCOUNTER → 2022-05-15 13:05 | Outpatient (BNVA) | payer MEDICAID, SELFPAY | PROVIDERS: Visit Provider Surgery | DX: R13.10 Dysphagia, unspecified (principal) | CPT/HCPCS: 99213 ==

== ENCOUNTER 2022-05-15 13:51 | Emergency (ER) | payer MEDICAID, SELFPAY ==
[2022-05-15 13:56] VITALS: BP 130/79; PULSE 75; RESP 16; TEMP 37.1; O2SAT 95
[2022-05-15 13:59] VITALS: BP 113/71; PULSE 79; RESP 18; O2SAT 97
--- NOTE | 2022-05-15 14:14 | FL_ITS ---
WS: [id number] FL barium swallow [id number] REASON FOR EXAM: dysphagia FLUOROSCOPY TIME: 1min [id number] # OF SPOT FILMS: 4 TECHNIQUE: Patient was examined in the upright position. Small amounts of thin barium were ingested and evaluate d fluoroscopically and with multiple rapid sequence spot films. Patient was unable to tolerate larger swallows to distend the gastric pull-through and better evaluate stenosis and flow, gagging and chok ing and regurgitating. FINDINGS: Complex findings. No examination for comparison. There is moderate dilatation of the presumed [place] esophagus above the level of the aortic arch. At the level of the aortic arch there is a moderate narrowing, maximum diameter 7 mm. From the level of the aortic arch distally to the esophageal hiatus there is a redundant presumed gas tric pull-through (there appear to be gastric folds) which extends to the esophageal hiatus and into the abdomen. There also appears to be a false featureless tubular channel paralleling the gastric fol d pattern. There is a pooling of the barium in the presumed distal most gastric fundus proximal to a significant narrowing at what appears to be the junction of the gastric fundus and the antrum. This narrowing ap pears to be about 4 mm in diameter. Delayed films demonstrate significant residual barium from this narrowing retrograde to the level of the aortic arch. 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 There also appears to be a false channel presumabl y from previous attempts at dilatation or possibly related to the surgery.
--- NOTE | 2022-05-15 14:16 | ED_ITS ---
HPI - General Adult General: Chief complaint: General Medical Stated complaint: can't swallow n/v Time Seen by Provider: 05/15/22 14:00 Source: patient Mode of arrival: ambulatory Limitations: no limitations History of Present Illness: 46-year-old male who has extensive history of surgeries and esophagectomy he has had longstanding issues with dysphagia as well. He has had to have esophageal stretching due to strictures done at [facility] in the past he had seen Dr. Sommers today stating that he is having problems swallowing liquids or solids. Patient denies any vomiting or diarrhea he was sent here by Dr. Sommers for further testing. Associated symptoms: Deny chest pain, dyspnea, headache(s), nausea, rash or vomiting Review of Systems Const: Denies: fever(s), chills, body aches or change in appetite Eyes: Denies: blurry vision or eye discomfort ENMT: Reports: odynophagia Card: Denies: chest pain Resp: Denies: dyspnea GI: Denies: abdominal pain, nausea, vomiting or diarrhea : Denies: dysuria Musc: Denies: neck pain or back pain Skin/Breast: Denies: rash Neuro: Denies: headache(s) Psych: Denies: depression [place]/Lymph: Denies: easy bruising All/Imm: Denies: urticaria PFSH ED PFSH: Medical History Hiatal hernia Surgical History History of esophagectomy History of esophagectomy Social History Smoking and tobacco status: former smoker Physical Exam Const: COMMON NORMALS: no acute distress, patient oriented x3 and healthy appearing HENMT: COMMON NORMALS: normocephalic and atraumatic HEAD & SCALP: normocephalic and atraumatic Eye: COMMON NORMALS: Equal, round and reactive pupils present and EOMs intact bilaterally PUPIL: Yes Equal, round and reactive pupils present Neck/C-Spine: COMMON NORMALS: full ROM and supple Chest: COMMONS NORMALS: normal inspection of the chest and normal palpation of entire chest wall Resp: COMMON NORMALS: normal respiratory effort, No retractions, No use of accessory muscles and clear to auscultation bilaterally AUSCULTATION: clear to auscultation bilaterally Cardio: COMMON NORMALS: regular rate, regular rhythm and No murmurs present (Cardio) RATE: regular rate RHYTHM: regular rhythm GI: COMMON NORMALS: Normal to inspection, nondistended, normoactive bowel sounds present, Soft to palpation, non-tender and no masses PALPATION: Yes Soft to palpation Extremity: COMMON NORMALS: normal to inspection and full ROM Neuro: COMMON NORMALS: patient oriented x3, moves all extremities and no focal motor deficits Psych: COMMON NORMALS: mental status grossly normal, Normal thought process present and cooperative THOUGHT PROCESS: Normal thought process present Skin: COMMON NORMALS: no rashes or lesions noted and no wounds GENERAL SKIN EXAM: no rashes or lesions noted Course Vital Signs: Vital signs: Vital Signs Temperature 98.7 F 05/15/22 13:56 Pulse Rate 78 05/15/22 17:23 Respiratory Rate 18 05/15/22 17:23 Blood Pressure 116/94 05/15/22 17:23 Pulse Oximetry 99 05/15/22 17:23 Oxygen Delivery Me thod 05/15/22 17:23 MDM - General Adult Medical Decision Making Patient presents here with dysphagia his barium study here did show stricture or narrowing informed him he likely needs to have a dilatation not able to do it here due to his difficulty patient wants to go to [facility] I called them [facility] informed him that I would be able to transfer him but he was going to be on a wait list he states that he wants to go now he does not want to wait for transfer he does not want to sit in the ER overnight and decided to be discharged. 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 There also appears to be a false channel presumably from previous attempts at dilatation or possibly related to the surgery. Laboratory Results WBC 7.3 10^3/uL (4.0-10.0) 05/15/22 15:08 RBC 4.64 10^6/uL (4.1-5.3) 05/15/22 15:08 Hgb 10.7 g/dL (11.7-16.6) L 05/15/22 15:08 Hct 35.2 % (42.0-52.0) L 05/15/22 15:08 MCV 75.9 fl (80-94) L 05/15/22 15:08 MCH 23.1 pg (28.0-34.0) L 05/15/22 15:08 MCHC 30.4 g/dL (30.0-36.0) 05/15/22 15:08 RDW 15.9 % (12.1-15.1) H 05/15/22 15:08 Plt Count 323 10^3/cmm (130-400) 05/15/22 15:08 MPV 10.0 fL (7.4-10.4) 05/15/22 15:08 Neut % (Auto) 65.8 % 05/15/22 15:08 Lymph % (Auto) 20.7 % 05/15/22 15:08 [place] % (Auto) 10.7 % 05/15/22 15:08 Eos % (Auto) 1.6 % 05/15/22 15:08 Baso % (Auto) 0.8 % 05/15/22 15:08 Neut # (Auto) 4.79 10^3/uL (1.8-7.7) 05/15/22 15:08 Lymph # (Auto) 1.5 10^3/uL (0.8-4.8) 05/15/22 15:08 [place] # (Auto) 0.8 10^3/uL (0.2-0.9) 05/15/22 15:08 Eos # (Auto) 0.1 10^3/uL (0.0-0.8) 05/15/22 15:08 Baso # (Auto) 0.1 10^3/uL (0.0-0.1) 05/15/22 15:08 Nucleated RBC % (auto) 0 % 05/15/22 15:08 Nucleated RBCs # 0.0 /100WBC 05/15/22 15:08 Sodium 137 mmol/L (136-145) 05/15/22 15:08 Potassium 4.0 mmol/L (3.5-5.1) 05/15/22 15:08 Chloride 105 mmol/L (98-107) 05/15/22 15:08 Carbon Dioxide 24 mmol/L (22-29) 05/15/22 15:08 Anion Gap 12.0 (5-19) 05/15/22 15:08 BUN 6 mg/dL (6-20) 05/15/22 15:08 Creatinine 0.8 mg/dL (0.7-1.2) 05/15/22 15:08 GFR Calculation 104.1 mL/min (90-130) 05/15/22 15:08 Glucose 93 mg/dL (65-115) 05/15/22 15:08 Calculated Osmolality 281 mOsm/kg (285-295) L 05/15/22 15:08 Calcium 8.3 mg/dL (8.5-10.5) L 05/15/22 15:08 Total Bilirubin 0.3 mg/dL (0.15-1.2) 05/15/22 15:08 AST 21 U/L (0-40) 05/15/22 15:08 ALT 15 U/L (0-41) 05/15/22 15:08 Alkaline Phosphatase 93 IU/L (40-130) 05/15/22 15:08 Total Protein 6.4 g/dL (6.6-8.7) L 05/15/22 15:08 Albumin 3.8 g/dL (3.5-5.2) 05/15/22 15:08 Globulin 2.6 g/dL (1.3-4.6) 05/15/22 15:08 Lipase 23 U/L (13-60) 05/15/22 15:08 Discharge Plan Discharge Patient Disposition: Home Clinical Impression: Dysphagia Condition: Stable Prescriptions: No Action No Known Home Medications Discharge Orders: Discharge ED (Routine); Ordered 05/15/22 Ordered By: Nya Valladares Discharge Diet: Advance as tolerated Discharge Activity: Resume usual activity Patient Instructions: Dysphagia (ED) Coding Level of Care Code ED Athletic Equipment Custodian for Chg Fwd Exam Comprehensive
[2022-05-15] MEDS: lactated ringers 1,000 ML 999 ML IV (15:08)
[2022-05-15 15:16] LABS: Basophils # 0.1 10^3/uL (0.0-0.1); Basophils % 0.8 %; Eosinophils # 0.1 10^3/uL (0.0-0.8); Eosinophils % 1.6 %; Hematocrit 35.2 % (42.0-52.0); Hemoglobin 10.7 g/dL (11.7-16.6); Lymphocytes # 1.5 10^3/uL (0.8-4.8); Lymphocytes % 20.7 %; Mean Corpuscular HGB Conc 30.4 g/dL (30.0-36.0); Mean Corpuscular Hemoglobin 23.1 pg (28.0-34.0); Mean Corpuscular Volume 75.9 fl (80-94); Monocytes # 0.8 10^3/uL (0.2-0.9); Monocytes % 10.7 %; Neutrophils # 4.79 10^3/uL (1.8-7.7); Neutrophils % 65.8 %; Nucleated Red Blood Cells % 0 %; Platelet Count 323 10^3/cmm (130-400); Red Blood Count 4.64 10^6/uL (4.1-5.3); Red Cell Distribution Width 15.9 % (12.1-15.1); White Blood Count 7.3 10^3/uL (4.0-10.0)
[2022-05-15 15:38] LABS: Alanine Aminotransferase 15 U/L (0-41); Albumin Level 3.8 g/dL (3.5-5.2); Alkaline Phosphatase 93 IU/L (40-130); Aspartate Amino Transferase 21 U/L (0-40); Blood Urea Nitrogen 6 mg/dL (6-20); Calcium 8.3 mg/dL (8.5-10.5); Carbon Dioxide 24 mmol/L (22-29); Chloride 105 mmol/L (98-107); Globulin 2.6 g/dL (1.3-4.6); Glomerular Filtration Rate 104.1 mL/min (90-130); Glucose 93 mg/dL (65-115); Lipase 23 U/L (13-60); Osmolality Calculated 281 mOsm/kg (285-295); Sodium 137 mmol/L (136-145); Total Bilirubin 0.3 mg/dL (0.15-1.2); Total Protein 6.4 g/dL (6.6-8.7)
[2022-05-15] MEDS: ondansetron 2 mg/ML SDV 2 mL 4 MG IVP (17:20)
[2022-05-15 17:21] VITALS: RESP 18
[2022-05-15] MEDS: morphine 4 mg/mL SDV 1 mL IVP (17:21)
[2022-05-15 17:23] VITALS: BP 116/94; PULSE 78; RESP 18; O2SAT 99
[2022-05-15 18:04] VITALS: BP 116/76; PULSE 78; RESP 18; O2SAT 99
== END 2022-05-15 18:05 | disposition home or self-care (01) ==
PROVIDERS: Emergency Provider Emergency Medicine
DX: R13.10 Dysphagia, unspecified (principal); Z87.891 Personal history of nicotine dependence
CPT/HCPCS: 74220; 80053; 83690; 85025; 96361; 96374; 96375; 99284; J2270; J2405